=== PATIENT | female | born 1935 | race Caucasian/White ===

== ENCOUNTER → 2020-01-08 12:44 | Outpatient (CLI) | payer MEDICARE, OTHER, SELFPAY ==
--- NOTE | 2020-01-08 | DI.MRI.S_ITS ---
PROCEDURE: MR LUMBAR SPINE WO CON INDICATIONS: Low back pain TECHNIQUE: Noncontrast sagittal T1 spin echo and T2 fast echo, sagittal STIR, axial T1 and T2 fast spin echo through the lumbar spine. In cases with scoliosis, additional coronal T2 fast spin echo may be performed. COMPARISON: [facility], MR, L-SPINE WITHOUT CONTRAST, 10/11/2017, 10:40. FINDINGS: Image quality: Excellent. Alignment and Curvature: S-shaped scoliotic curvature is present with a levoconvex curvature in the lumbar spine with apex at L3-4. There is trace retrolisthesis of T12 on L1, L1 and L2, L2 on L3, grade 1 anterolisthesis of L4 on L5, L5 on S1, unchanged. Bone Marrow: Marrow is of normal overall signal. Minimal reactive endplate changes are present at L1-L2, L4-5 and L5-S1. No acute vertebral body compression fractures. Spinal Cord: Conus medullaris terminates at the L1 level. Visualized cord demonstrates normal signal and size. Paraspinous Soft Tissues: No paravertebral masses. Discs: Moderate to severe desiccation is present throughout the lumbar spine. T12-L1: Mild disc bulge with mild spinal stenosis. Mild right and moderate left foraminal narrowing with facet and ligamentum flavum hypertrophy. No interval change. L1-L2: Mild disc bulge with mild to moderate spinal stenosis. Mild right and moderate to severe left foraminal narrowing with facet and ligamentum flavum hypertrophy. No interval change. L2-L3: Mild disc bulge with moderate spinal stenosis. Right and mild left foraminal narrowing with facet and ligamentum flavum hypertrophy. No interval change. L3-L4: Mild disc bulge with severe spinal stenosis and canal flattening, unchanged. Moderate to severe right and mild left foraminal narrowing with facet and ligamentum flavum hypertrophy. No interval change. L4-L5: Mild disc bulge with severe spinal stenosis and canal flattening. There is severe right and moderate left foraminal narrowing with nerve root flattening of the right, slightly progressive compared to prior exam. This is affecting the exiting right L4 nerve root. Facet and ligamentum flavum hypertrophy are present. L5-S1: Mild disc bulge with moderate to severe spinal stenosis. Severe left and mild to moderate right foraminal narrowing with facet and ligamentum flavum hypertrophy. There is mild flattening of the exiting left L5 nerve root, minimally progressive compared to prior exam. IMPRESSION: 1. Degenerative changes and scoliotic curvature as above. 2. This severe spinal stenosis at L3-4, L4-5 secondary disc bulge with contributing effect of facet/ligamentum flavum arthropathy as well as scoliotic curvature. 3. Slightly progressive foraminal narrowing most severe at L4-5 and L5-S1 secondary to facet arthropathy as well as anterolisthesis. Dictated by: Betsey Johns M.D. on 01/08/2020 at 14:51 Approved by: Betsey Johns M.D. on 01/08/2020 at 15:51
== END ==
PROVIDERS: PCP Family Medicine; Referring Provider Physical Medicine & Rehabilitation Pain Medicine; Visit Provider Physical Medicine & Rehabilitation Pain Medicine
DX: M54.5 Low back pain (principal); M47.816 Spondylosis without myelopathy or radiculopathy, lumbar region; M47.817 Spondylosis without myelopathy or radiculopathy, lumbosacral region; M48.061 Spinal stenosis, lumbar region without neurogenic claudication; M48.07 Spinal stenosis, lumbosacral region; M41.86 Other forms of scoliosis, lumbar region; M43.16 Spondylolisthesis, lumbar region; M43.17 Spondylolisthesis, lumbosacral region
CPT/HCPCS: 72148

== ENCOUNTER 2020-03-04 20:36 | Emergency (ER) | payer MEDICARE, OTHER, SELFPAY ==
[2020-03-04 20:39] VITALS: BP 191/90; PULSE 66; RESP 16; TEMP 36.7; O2SAT 99
[2020-03-04 20:45] VITALS: PULSE 74; O2SAT 94
--- NOTE | 2020-03-04 20:58 | DI.CT.S_ITS ---
PROCEDURE: CT HEAD/BRAIN WO CON INDICATIONS: fall with head injury TECHNIQUE: Noncontrast 4.5 mm thick angled axial sections acquired from the foramen magnum to the vertex, with coronal and sagittal reformats. For radiation dose reduction, the following was used: automated exposure control, adjustment of mA and/or kV according to patient size. COMPARISON: [facility], CT, CT FACIAL BONES WO CON, 03/04/2020, 21:01. [facility], CT, HEAD WITHOUT CONTRAST, 02/01/2017, 10:20. FINDINGS: Image quality: Excellent. CSF spaces: Basal cisterns are patent. No extra-axial fluid collections. The ventricles are symmetric in size and shape. Brain: No intracranial bleeds or masses. There is cerebral volume loss for age, with resultant ventricular and sulcal prominence. There are periventricular and deep white matter chronic small vessel ischemic changes. There is intracranial internal carotid artery atherosclerosis. Skull and face: Calvarium and visualized facial bones appear intact, without suspicious lesions. Left frontal scalp hematoma is present. Sinuses: Visualized sinuses and mastoids are clear. IMPRESSION: 1. No acute intracranial process. 2. Moderate atrophy and chronic microvascular ischemic changes. 3. Left frontal scalp hematoma. Dictated by: Betsey Johns M.D. on 03/04/2020 at 21:43 Approved by: Betsey Johns M.D. on 03/04/2020 at 21:44
--- NOTE | 2020-03-04 20:58 | DI.CT.S_ITS ---
PROCEDURE: CT FACIAL BONES WO CON INDICATIONS: fall with facial injury TECHNIQUE: Noncontrast 2.5 mm thick axial images acquired from the mandible through the frontal sinuses, with coronal and sagittal reformatting. For radiation dose reduction, the following was used: automated exposure control, adjustment of mA and/or kV according to patient size. COMPARISON: [facility], CT, CT HEAD/BRAIN WO CON, 03/04/2020, 21:01. FINDINGS: Image quality: Excellent. Bones and teeth: Orbital jones are intact. Sinus jones show no fracture or deformity. Nasal bones and septum are intact. Visualized portions of the mandible demonstrate no fractures or subluxation. Zygomatic arches are intact. Pterygoid plates are intact. Visualized portions of the skull base and auditory canals are intact. Sinuses: Paranasal sinuses are aerated, without fluid levels, mucosal thickening, or mucoceles. Mastoid air cells are aerated. Soft tissues: No edema, masses, or fluid collections. No enlarged lymph nodes. No soft tissue lacerations or debris. Left frontal scalp hematoma. Vascular: Visualized vascular structures appear normal in the absence of contrast. Bony vascular foramina and canals are intact. IMPRESSION: 1. Left frontal scalp hematoma. 2. No visualized fracture. Dictated by: Betsey Johns M.D. on 03/04/2020 at 21:44 Approved by: Betsey Johns M.D. on 03/04/2020 at 21:46
[2020-03-04 21:00] VITALS: BP 187/81; PULSE 63; O2SAT 98
[2020-03-04 21:03] VITALS: BMI 26.5
--- NOTE | 2020-03-04 21:57 | ED_ITS ---
HPI - Fall General Chief Complaint: Fall Stated Complaint: FALL HEAD LACERATION Time Seen by Provider: 03/04/20 20:40 Source: patient and family Mode of arrival: Wheelchair Limitations: no limitations History of Present Illness HPI Narrative: 84F never smoker with history of hypothyroid presents with family members and the chief complaint of an accidental ground level fall and head/face injury. She was walking and got her feet caught up in her cane and tripped and fell forward, striking her forehead and face. She takes no blood thinners and denies any alcohol or street drugs. She denies any loss of consciousness nor vomiting and has full recall of the event. She denies any dizziness, weakness or lightheadedness. She denies any chest pain or shortness of breath. She denies any neck or back pain. She denies any shoulder, elbow, wrist or hip pain. Related Data Home Medications Medication Instructions Recorded Confirmed aspirin 325 mg PO QDAY #0 02/21/17 diclofenac sodium 75 mg PO BIDCC #0 02/21/17 hydrocodone-acetaminophen 2 tab PO Q4HP PRN #0 02/21/17 hydromorphone 2 mg PO Q6HP PRN #0 02/21/17 levothyroxine [Tirosint] 88 mcg PO QDAY #0 02/21/17 Allergies Allergy/AdvReac Type Severity Reaction Status Date / Time Tramadol Allergy Unknown Uncoded 11/23/17 11:58 Review of Systems Constitutional Constitutional: Denies chills, Denies fatigue, Denies fever(s), Denies frequent falls, Reports headache(s), Denies lethargy and Denies weakness Eyes Eyes: Denies change in vision, Denies eye discharge, Denies irritation and Denies loss of vision ENT Ears, Nose, Mouth, and Throat: Denies change in voice, Denies dizziness, Reports headache(s), Denies neck pain, Denies sore throat and Denies throat swelling Cardiovascular Cardiovascular: Denies chest pain, Denies irregular heart rhythm, Denies lightheadedness, Denies palpitations, Denies dyspnea, Denies dyspnea on exertion and Denies orthopnea Respiratory Respiratory: Denies cough, Denies dyspnea, Denies dyspnea on exertion and Denies wheezing Gastrointestinal Gastrointestinal: Denies abdominal pain, Denies change in bowel habits, Denies diarrhea, Denies nausea and Denies vomiting Musculoskeletal Musculoskeletal: Denies neck pain and Denies numbness Integumentary/Breasts Skin/Breast: Denies pruritus, Denies erythema, Denies rash, Reports skin swelling and Reports wounds Neurologic Neurologic: Denies behavioral changes, Denies confusion, Denies dizziness, Denies frequent falls, Reports headache(s), Denies loss of vision, Denies numbness and Denies weakness Psychiatric Psychiatric: Denies anxiety, Denies behavioral changes, Denies confusion, Denies depression, Denies homicidal ideation and Denies suicidal ideation Endocrine Endocrine: Denies fatigue, Denies flushing and Denies palpitations Hematologic/Lymphatic Hematologic/Lymphatic: Denies easy bruising Allergic/Immunologic Allergic/Immunologic: Denies urticaria, Denies throat swelling and Denies wheezing Patient History Social History Smoking Status: Never smoker Smoking Status: Never smoker alcohol intake frequency: 0-2 drinks per day Substance Use Type: does not use Exam Narrative Exam Narrative: GENERAL: [84] year old patient appears stated age. Well- nourished, well-developed patient, in mild distress. GCS 15 HEAD: Superficial abrasion on superior forehead notable left anterior scalp hematoma and some ecchymosis at the medial, inferior border of left eye. There is a superficial abrasion on the bridge of her nose which will not except sutures. EYES: Pupils equal round and reactive. Extraocular motions intact. No scleral icterus. No injection or drainage. No hyphema ENT: Nose without bleeding, purulent drainage. No nasal septal hematoma. No hemotympanum. Throat without erythema, tonsillar hypertrophy or exudate. Airway patent. NECK: Trachea midline. Non tender CARDIOVASCULAR: Regular rate and rhythm without murmurs, gallops, or rubs. RESPIRATORY: Clear to auscultation. Breath sounds equal bilaterally. No wheezes, rales, or rhonchi. GASTROINTESTINAL: Abdomen soft, non-tender, nondistended. EXTREMITIES: No edema or joint tenderness. BACK: Nontender without deformity or crepitance. No flank tenderness. NEURO: AOx3. SKIN: No rash or erythema of visible areas Initial Vital Signs Initial Vital Signs: Vital Signs Temperature 98.0 F 03/04/20 20:39 Pulse Rate 66 03/04/20 20:39 Respiratory Rate 16 03/04/20 20:39 Blood Pressure 191/90 H 03/04/20 20:39 Pulse Oximetry 99 03/04/20 20:39 Course Orders Ordered: ED Orders 03/04/20 20:58 CT facial bones wo con Stat CT head/brain wo con Stat Discontinued Medications Ondansetron HCl (Zofran Odt Prepack) 1 bottle MISC SEEINSTR ONE Stop: 03/04/20 22:03 Last Admin: 03/04/20 22:11 Dose: 1 bottle Documented by: JL Vital Signs Vital signs: Vital Signs - 8 hr 03/04/20 20:39 03/04/20 20:45 03/04/20 21:00 Temperature 98.0 F Pulse Rate 66 74 63 Respiratory Rate 16 Blood Pressure 191/90 H 187/81 H Pulse Oximetry 99 94 98 03/04/20 22:22 Temperature 97.7 F Pulse Rate 57 L Respiratory Rate 18 Blood Pressure 179/86 H Pulse Oximetry 96 MDM - Fall Imaging Data CT scan - head: Radiologist's Impression: Chart Viewer Diagnostics DATE TYPE STATUS REF RANGE/AUTHOR Hx 03/04/20 20:58 Betsey Johns 03/04/20 20:58 Betsey Johns 01/08/20 00:00 Betsey Johns Robin M 84, [id number] [facility] ED 157.48cm 65.771kg BMI: 26.5kg/m? Fall Search Chart No Data to Display ONSET 03/04/20 22:22 GodfreyFerdinand Garcia 84 F 1935 [place] [address] CT Scan Report Signed Patient: Primitivo Donahuein [facility]#: [id number] : 5Acct:[id number] Age/Sex: 84 / FDate of Service: 03/04/20 Loc: ED Accession Number: [id number] Procedure: CT head/brain wo con Ordering Provider: Martin Stevens D.O. PROCEDURE: CT HEAD/BRAIN WO CON INDICATIONS: fall with head injury TECHNIQUE: Noncontrast 4.5 mm thick angled axial sections acquired from the foramen magnum to the vertex, with coronal and sagittal reformats. For radiation dose reduction, the following was used: automated exposure control, adjustment of mA and/or kV according to patient size. COMPARISON: [facility], CT, CT FACIAL BONES WO CON, 03/04/2020, 21:01. [facility], CT, HEAD WITHOUT CONTRAST, 02/01/2017, 10:20. FINDINGS: Image quality: Excellent. CSF spaces: Basal cisterns are patent. No extra-axial fluid collections. The ventricles are symmetric in size and shape. Brain: No intracranial bleeds or masses. There is cerebral volume loss for age, with resultant ventricular and sulcal prominence. There are periventricular and deep white matter chronic small vessel ischemic changes. There is intracranial internal carotid artery atherosclerosis. Skull and face: Calvarium and visualized facial bones appear intact, without suspicious lesions. Left frontal scalp hematoma is present. Sinuses: Visualized sinuses and mastoids are clear. IMPRESSION: 1. No acute intracranial process. 2. Moderate atrophy and chronic microvascular ischemic changes. 3. Left frontal scalp hematoma. Dictated by: Betsey Johns M.D. on 03/04/2020 at 21:43 Approved by: Betsey Johns M.D. on 03/04/2020 at 21:44 [place] [address] CT Scan Report Signed Patient: Ferdinand Donahue [facility]#: [id number] : 5Acct:[id number] Age/Sex: 84 / FDate of Service: 03/04/20 Loc: ED Accession Number: [id number] Procedure: CT facial bones wo con Ordering Provider: Martin Stevens D.O. PROCEDURE: CT FACIAL BONES WO CON INDICATIONS: fall with facial injury TECHNIQUE: Noncontrast 2.5 mm thick axial images acquired from the mandible through the frontal sinuses, with coronal and sagittal reformatting. For radiation dose reduction, the following was used: automated exposure control, adjustment of mA and/or kV according to patient size. COMPARISON: [facility], CT, CT HEAD/BRAIN WO CON, 03/04/2020, 21:01. FINDINGS: Image quality: Excellent. Bones and teeth: Orbital jones are intact. Sinus jones show no fracture or deformity. Nasal bones and septum are intact. Visualized portions of the mandible demonstrate no fractures or subluxation. Zygomatic arches are intact. Pterygoid plates are intact. Visualized portions of the skull base and auditory canals are intact. Sinuses: Paranasal sinuses are aerated, without fluid levels, mucosal thickening, or mucoceles. Mastoid air cells are aerated. Soft tissues: No edema, masses, or fluid collections. No enlarged lymph nodes. No soft tissue lacerations or debris. Left frontal scalp hematoma. Vascular: Visualized vascular structures appear normal in the absence of contrast. Bony vascular foramina and canals are intact. IMPRESSION: 1. Left frontal scalp hematoma. 2. No visualized fracture. Dictated by: Betsey Johns M.D. on 03/04/2020 at 21:44 Approved by: Betsey Johns M.D. on 03/04/2020 at 21:46 Discharge Plan Departure Patient Disposition: Home Clinical Impression: Hematoma Concussion Qualifiers: Encounter type: initial encounter Loss of consciousness presence/duration: without LOC Qualified Code(s): S06.0X0A - Concussion without loss of consciousness, initial encounter Discharge Date/Time: 03/04/20 22:22 Instructions: DI for Concussion, DI for Hematoma (Bruise) Activity Restrictions/Additional Instructions: You have a slight concussion and will likely have a mild headache and some nausea for a few days. Avoiding highly stimulating activities and even TV or computers may be helpful in minimizing your symptoms. Avoid activities that will put you at risk for another head injury for at least a week. You can take tylenol or motrin for headache or the prescription provided for nausea/vomiting. Return for worsening or persistent symptoms Prescriptions: No Action aspirin 325 MG tablet 325 mg PO QDAY Qty: 0 RF: 0 levothyroxine [Tirosint] 88 MCG capsule 88 mcg PO QDAY Qty: 0 RF: 0 diclofenac sodium 75 MG tablet,delayed release (DR/EC) 75 mg PO BIDCC Qty: 0 RF: 0 hydrocodone-acetaminophen 5 MG/325 MG tablet 2 tab PO Q4HP PRNQty: 0 RF: 0 hydromorphone 2 MG tablet 2 mg PO Q6HP PRNQty: 0 RF: 0 Referrals: Meghann Felix DO [Primary Care Provider] -
[2020-03-04] MEDS: ONDANSETRON 4 MG ODT PREPACK 1 BOTTLE MISC (22:11)
[2020-03-04 22:22] VITALS: BP 179/86; PULSE 57; RESP 18; TEMP 36.5; O2SAT 96
== END 2020-03-04 22:22 | disposition home or self-care (01) ==
PROVIDERS: Emergency Provider Emergency Medicine; PCP Family Medicine
DX: S06.0X0A Concussion without loss of consciousness, initial encounter (principal); S00.03XA Contusion of scalp, initial encounter; W01.0XXA Fall on same level from slipping, tripping and stumbling without subsequent striking against object, initial encounter
CPT/HCPCS: 70450; 70486; 99281; 99284